=== PATIENT | male | born 1995 | race Caucasian/White ===

== ENCOUNTER → 2017-08-20 | Outpatient (CLI) | payer OTHER | LOC: M WUC 10:13 | DX: S62.341A Nondisplaced fracture of base of second metacarpal bone, left hand, initial encounter for closed fracture (principal); S62.343A Nondisplaced fracture of base of third metacarpal bone, left hand, initial encounter for closed fracture; X58.XXXA Exposure to other specified factors, initial encounter; Y92.9 Unspecified place or not applicable | CPT/HCPCS: 73130 ==